=== PATIENT | male | born 1970 | race Caucasian/White ===

== ENCOUNTER 2021-03-12 23:28 | Emergency (ER) | payer OTHER ==
[2021-03-13] MEDS ORDERED: Lidocaine 1% w/Epinephrine 1:100K 20 ML VIAL ONE (00:24)
== END 2021-03-13 01:09 | disposition home or self-care (01) ==
LOC: ERS 23:28
DX: S01.01XA Laceration without foreign body of scalp, initial encounter (principal); W11.XXXA Fall on and from ladder, initial encounter
CPT/HCPCS: 12001; 70450; 72125